=== PATIENT | female | born 1990 | race African-American/Black ===

== ENCOUNTER 2016-08-18 15:43 | Outpatient (CLI) | payer OTHER ==
--- NOTE | 2016-08-18 18:27 | RAD ---
TWO VIEWS LEFT HIP HISTORY: Left hip pain. TECHNIQUE: AP and frogleg views of the left hip are obtained. FINDINGS: No evidence of left hip fractures, subluxations, or bony lesions is seen. IMPRESSION: Normal two views left hip. POS: [facility]
== END 2016-08-18 15:44 | disposition home or self-care (01) ==
LOC: NAV RAD 15:43
PROVIDERS: ATTEND Family Medicine
DX: M25.552 Pain in left hip (principal); M19.90 Unspecified osteoarthritis, unspecified site; K58.9 Irritable bowel syndrome, unspecified; D64.9 Anemia, unspecified

== ENCOUNTER 2016-08-18 16:10 | Emergency (ER) | payer OTHER | END 2016-08-18 16:40 | disposition home or self-care (01) | LOC: NAV ERS 16:10 | DX: L04.0 Acute lymphadenitis of face, head and neck (principal); K58.9 Irritable bowel syndrome, unspecified; F41.9 Anxiety disorder, unspecified; Z79.899 Other long term (current) drug therapy | CPT/HCPCS: 99283 ==

== ENCOUNTER 2018-01-29 10:34 | Emergency (ER) | payer OTHER, SELFPAY ==
[2018-01-29 11:06] LABS: Bilirubin Negative (Negative); Blood, Urine Negative (Negative); Clarity Clear (Clear); Glucose, Urine (Dipstick) Negative (Negative); Leukocyte Negative (Negative); Nitrite Negative (Negative); Protein, Urine (Dipstick) Negative (Neg-Trace); Specific Gravity, Urine 1.025 (1.005-1.030)
== END 2018-01-29 11:35 | disposition home or self-care (01) ==
LOC: NAV ERS 10:34
DX: R30.0 Dysuria (principal); H57.11 Ocular pain, right eye; F32.9 Major depressive disorder, single episode, unspecified; Z79.899 Other long term (current) drug therapy
CPT/HCPCS: 81003; 99281

== ENCOUNTER 2018-02-16 13:59 | Emergency (ER) | payer SELFPAY ==
[2018-02-16 15:04] LABS: Bilirubin Negative (Negative); Blood, Urine Large (Negative); Clarity Slightly Cloudy (Clear); Glucose, Urine (Dipstick) Negative (Negative); Leukocyte Negative (Negative); Nitrite Negative (Negative); Protein, Urine (Dipstick) 30 mg/dL (Neg-Trace); pH, Urine 6.5 (5.0-9.0)
[2018-02-16 15:10] LABS: RBC/HPF GREATER THAN 50-TNTC HPF (0-3); Specific Gravity, Urine 1.022 (1.002-1.036); WBC/HPF 0-3 HPF (0-3)
[2018-02-16 15:11] LABS: Bacteria/HPF 1+ HPF (None Seen); Pregnancy Test - Urine (BHCG) Negative (Negative); Pregu Control Background? CLEAR/WHITE (CLR/WHITE); Pregu Control Bar Appear? YES (CONTROL BAR); Specific Gravity 1.022 (1.002-1.036)
== END 2018-02-16 15:48 | disposition home or self-care (01) ==
LOC: NAV ERS 13:59
DX: R31.9 Hematuria, unspecified (principal); R30.0 Dysuria; F41.9 Anxiety disorder, unspecified; F32.9 Major depressive disorder, single episode, unspecified; M19.90 Unspecified osteoarthritis, unspecified site; Z79.899 Other long term (current) drug therapy
CPT/HCPCS: 81003; 81015; 81025; 87086; 99283

== ENCOUNTER 2020-01-11 10:42 | Emergency (ER) | payer SELFPAY | END 2020-01-11 11:20 | disposition home or self-care (01) | LOC: NAV ERS 10:42 | DX: R19.7 Diarrhea, unspecified (principal); R10.33 Periumbilical pain; F41.9 Anxiety disorder, unspecified; F32.9 Major depressive disorder, single episode, unspecified; Z79.899 Other long term (current) drug therapy | CPT/HCPCS: 99283 ==

== ENCOUNTER 2020-02-11 21:39 | Emergency (ER) | payer SELFPAY ==
[2020-02-11] MEDS ORDERED: Acetaminophen 500 MG TAB ONE (22:03)
--- NOTE | 2020-02-11 22:31 | RAD ---
Chest one view HISTORY: Cough. FINDINGS: Cardiac silhouette and pulmonary vasculature are unremarkable. Mediastinum is midline. No confluent airspace consolidation or evidence of pneumothorax. IMPRESSION : No abnormalities are demonstrated.
== END 2020-02-11 22:50 | disposition home or self-care (01) ==
LOC: NAV ERS 21:39
DX: U07.1 COVID-19 (principal); K58.9 Irritable bowel syndrome, unspecified; M19.90 Unspecified osteoarthritis, unspecified site; Z79.899 Other long term (current) drug therapy
CPT/HCPCS: 71045

== ENCOUNTER 2020-05-23 17:24 | Emergency (ER) | payer MEDICAID, SELFPAY ==
[2020-05-23 17:51] LABS: Bilirubin Negative (Negative); Blood, Urine Negative (Negative); Clarity Clear (Clear); Glucose, Urine (Dipstick) Negative (Negative); Ketone, Urine Trace mg/dL (Negative); Leukocyte Negative (Negative); Nitrite Negative (Negative); Protein, Urine (Dipstick) Negative (Neg-Trace); Urobilinogen 0.2 mg/dL (Less than 2); pH, Urine 5.5 (5.0-9.0)
[2020-05-23 17:54] LABS: Specific Gravity, Urine 1.029 (1.002-1.036)
[2020-05-23 17:54] LABS: Pregnancy Test - Urine (BHCG) Negative (Negative); Pregu Control Background? CLEAR/WHITE (CLR/WHITE); Pregu Control Bar Appear? YES (CONTROL BAR); Specific Gravity 1.029 (1.002-1.036)
== END 2020-05-23 18:41 | disposition home or self-care (01) ==
LOC: NAV ERS 17:24
DX: R30.0 Dysuria (principal); R35.0 Frequency of micturition; M19.90 Unspecified osteoarthritis, unspecified site; Z79.899 Other long term (current) drug therapy
CPT/HCPCS: 81003; 81025; 99283

== ENCOUNTER 2021-03-31 21:56 | Emergency (ER) | payer OTHER, SELFPAY | END 2021-03-31 22:19 | disposition home or self-care (01) | LOC: NAV ERS 21:56 | DX: R21 Rash and other nonspecific skin eruption (principal); M19.90 Unspecified osteoarthritis, unspecified site; Z87.19 Personal history of other diseases of the digestive system | CPT/HCPCS: 99282 ==